=== PATIENT | female | born 1965 | race African-American/Black ===

== ENCOUNTER 2020-04-10 16:14 | Emergency (ER) | payer SELFPAY ==
[~2020-04-10] VITALS: Ht 162.6 cm; Wt 60.0 kg
[2020-04-10] MEDS ORDERED: SODIUM CHLORIDE 0.9% 1,000 ML IV ONE (16:47)
[2020-04-10 18:00] LABS: CHLORIDE 114 mEq/L (98-107)
[2020-04-10 18:02] LABS: BASOPHILS % 2.3 % (0.0-2.0); EOSINOPHILS % 1.3 % (0.0-5.0); HEMOGLOBIN. 10.8 g/dL (12.0-16.0); LYMPHOCYTES % 49.8 % (20.0-50.0); MEAN CORPUSCULAR HEMOGLOBIN 30.6 pg (28.0-32.0); MEAN CORPUSCULAR VOLUME 93.7 fL (81.0-99.0); MEAN PLATELET VOLUME 8.1 fl (7.4-10.4); NEUTROPHILS % 38.6 % (40.0-76.0); PLATELET 248 x1000/uL (130-400); RED BLOOD CELL COUNT 3.52 mill/uL (4.2-5.4); RED CELL DISTRIBUTION WIDTH 13.8 % (11.6-14.6)
[2020-04-10 18:04] LABS: ETHANOL BLOOD 232 mg/dL
[2020-04-10 18:09] LABS: HCG SCREEN NEGATIVE
[2020-04-11 06:40] VITALS: BP 145/82
== END 2020-04-11 07:10 | disposition home or self-care (01) ==
LOC: ER 16:14 → EDBD 16:14 → ER 04-11 07:10
DX: T51.0X1A Toxic effect of ethanol, accidental (unintentional), initial encounter (principal); R41.82 Altered mental status, unspecified; F17.200 Nicotine dependence, unspecified, uncomplicated; I49.9 Cardiac arrhythmia, unspecified; Y92.89 Other specified places as the place of occurrence of the external cause
CPT/HCPCS: 36415; 80053; 80307; 80320; 80329; 82962; 84703; 85025; 93005; 96360; 99285; J7030; G0480

== ENCOUNTER 2020-05-17 20:14 | Emergency (ER) | payer SELFPAY ==
[~2020-05-17] VITALS: Ht 162.6 cm; Wt 52.0 kg
[2020-05-18 05:15] VITALS: BP 128/83
== END 2020-05-18 05:15 | disposition home or self-care (01) ==
LOC: ER 20:14
DX: F16.188 Hallucinogen abuse with other hallucinogen-induced disorder (principal); H55.00 Unspecified nystagmus; I49.9 Cardiac arrhythmia, unspecified
CPT/HCPCS: 93005; 96375; 96376; 99285